=== PATIENT | female | born 1945 | race Caucasian/White ===

== ENCOUNTER 2016-07-14 16:38 | Emergency (ER) | payer BC ==
[~2016-07-14] VITALS: Ht 165.1 cm; Wt 60.0 kg
[~2016-07-14 16:38] MED LIST: ALBUAER19 INH; FELO10TA2 PO; LEVO75TA PO; LOSA1TAB38 PO; TIOTCAP INH
[2016-07-14 17:10] VITALS: TEMP 37.1; Ht 165.1 cm; Wt 60.0 kg
[2016-07-14] MEDS ORDERED: METHYLPREDNISOLONE 125 MG VIAL IV STA (17:46)
--- NOTE | 2016-07-14 17:48 | EMERGENCY ROOM VISIT NOTE ---
History Report prepared by Mindy: Tyrone Lai Under the Supervision of: Dr. Jean Pierre Asher M.D. First contact with patient: 17:41 Chief Complaint: SWELLING TO EXTREMITY Stated Complaint: SWOLLEN FEET History of Present Illness The patient is a 71 year old female who presents to the Emergency Room with complaints of persistent leg swelling that started yesterday. She has also been short of breath and coughing. The patient has smoked since she was 14 years old , and she smokes one pack per day. She says she has no history of COPD. The patient does not drink alcohol. She denies any weakness, fatigue, loss of consciousness, or chest pain. The patient does not use oxygen at home. Source of History: patient Onset: Yesterday Position: leg Quality: other (swelling) Timing: other (persistent) Associated Symptoms: + SOB, + cough, No LOC, No chest pain, No fatigue, No weakness Note: No other associated symptoms noted. Review of Systems See HPI for pertinent positives & negatives. A total of 10 systems reviewed and were otherwise negative. Past Medical & Surgical Medical Problems: (1) Hypertension Surgical Problems: (1) S/P cholecystectomy Family History Diabetes mellitus Hypertension Social History Smoking Status: Current Every Day Smoker Alcohol Use: none Marital Status: Housing Status: lives with family Occupation Status: employed Current/Historical Medications Scheduled Felodipine (Plendil), 10 MG PO DAILY Levothyroxine Sodium (Synthroid), 75 MCG PO DAILY Losartan Potassium (Cozaar), 100 MG PO DAILY Tiotropium [place] (Spiriva Handihaler), 1 CAP INH DAILY Scheduled PRN Albuterol Inhaler (Ventolin Inhaler), 2 PUFFS INH QID PRN for SOB/Wheezing Allergies Coded Allergies: No Known Allergies (Unverified , 07/14/16) Physical Exam Vital Signs Date Time Temp Pulse Resp B/P Pulse Ox O2 Delivery O2 Flow Rate FiO2 07/14/16 19:11 81 24 190/98 100 Nebulizer 9.0 07/14/16 18:15 79 14 94 Nasal Cannula 3.0 07/14/16 17:50 97 Nasal Cannula 4.0 07/14/16 17:48 79 Room Air 07/14/16 17:47 84 07/14/16 17:40 100 Nasal Cannula 4.0 07/14/16 17:10 37.1 82 18 168/84 82 Room Air Physical Exam GENERAL: Patient is chronically unwell appearing and in minimal distress. HEENT: No acute trauma, normocephalic atraumatic, mucous membranes moist, no nasal congestion, no scleral icterus. NECK: No stridor, no adenopathy, no meningismus, trachea is midline. LUNGS: Diffuse tight lung sounds with wheezing. HEART: Regular rate and rhythm. No murmurs, rubs, gallops appreciated. ABDOMEN: Soft, nontender, bowel sounds positive, no masses appreciated, no peritonitis. BACK: No midline tenderness, no CVA tenderness EXTREMITIES: Normal motion all extremities, no cyanosis. 1+ edema bilateral lower legs and ankles. NEUROLOGIC: Alert and oriented, no acute motor or sensory deficits, no focal weakness, cranial nerves grossly intact. SKIN: No rash, no jaundice, no diaphoresis. Medical Decision & Procedures ER Provider Diagnostic Interpretation: X ray results are stated below per my interpretation and the radiologist's interpretation. CHEST ONE VIEW PORTABLE CLINICAL HISTORY: [facility] dyspnea COMPARISON STUDY: 06/01/2015 FINDINGS: Interval increase in cardiac size. Prominent pulmonary vasculature. Slight blunting right lateral costophrenic angle. Baseline emphysematous change. IMPRESSION: Congestive heart failure Electronically signed by: Oli Araiza M.D. 07/14/2016 6:09 PM Dictated Date/Time: 07/14/2016 6:09 PM Laboratory Results 07/14/16 18:00 Red Blood Count 5.36, Mean Corpuscular Volume 86.8, Mean Corpuscular Hemoglobin 27.1, Mean Corpuscular Hemoglobin Concent 31.2, Mean Platelet Volume 10.1, Neutrophils (%) (Auto) 72.3, Lymphocytes (%) (Auto) 16.9, Monocytes (%) (Auto) 7.9, Eosinophils (%) (Auto) 2.7, Basophils (%) (Auto) 0.1, Neutrophils # (Auto) 5.09, Lymphocytes # (Auto) 1.19, Monocytes # (Auto) 0.56, Eosinophils # (Auto) 0.19, Basophils # (Auto) 0.01 07/14/16 18:00 Test 07/14/16 18:00 White Blood Count 7.05 K/uL (4.8-10.8) Red Blood Count 5.36 M/uL (4.2-5.4) Hemoglobin 14.5 g/dL (12.0-16.0) Hematocrit 46.5 % (37-47) Mean Corpuscular Volume 86.8 fL (80-100) Mean Corpuscular Hemoglobin 27.1 pg (25-34) Mean Corpuscular Hemoglobin Concent 31.2 g/dl (32-36) Platelet Count 176 K/uL (130-400) Mean Platelet Volume 10.1 fL (7.4-10.4) Neutrophils (%) (Auto) 72.3 % Lymphocytes (%) (Auto) 16.9 % Monocytes (%) (Auto) 7.9 % Eosinophils (%) (Auto) 2.7 % Basophils (%) (Auto) 0.1 % Neutrophils # (Auto) 5.09 K/uL (1.4-6.5) Lymphocytes # (Auto) 1.19 K/uL (1.2-3.4) Monocytes # (Auto) 0.56 K/uL (0.11-0.59) Eosinophils # (Auto) 0.19 K/uL (0-0.5) Basophils # (Auto) 0.01 K/uL (0-0.2) RDW Standard Deviation 50.4 fL (36.4-46.3) RDW Coefficient of Variation 15.7 % (11.5-14.5) Immature Granulocyte % (Auto) 0.1 % Immature Granulocyte # (Auto) 0.01 K/uL (0.00-0.02) Anion Gap 5.0 mmol/L (3-11) Est Creatinine Clear Calc Drug Dose 57.8 ml/min Estimated GFR () 87.4 Estimated GFR (Non- 75.4 BUN/Creatinine Ratio 12.3 (10-20) Calcium Level 8.3 mg/dl (8.5-10.1) Total Creatine Kinase 120 U/L (26-192) Creatine Kinase MB 2.8 ng/ml (0.5-3.6) Creatine Kinase MB Ratio 2.3 (0-3.0) Troponin I 0.039 ng/ml (0-0.045) Pro-B-Type Natriuretic Peptide 60458 pg/ml (0-900) Chemistry Specimen Hemolysis Laboratory results as reviewed by me. Medications Administered Medications (Trade) Dose Ordered Sig/James Route Start Time Stop Time Status Last Admin Dose Admin Albuterol/ Ipratropium (Duoneb) 12 ml ONE ONCE INH 07/14/16 18:00 07/14/16 18:01 DC 07/14/16 18:14 12 ML Methylprednisolone Sodium Succinate (Solu-Medrol IV) 125 mg NOW STAT IV 07/14/16 17:46 07/14/16 17:47 DC 07/14/16 18:11 125 MG ECG Indication: SOB/dyspnea Rate (beats per minute): 75 Rhythm: normal sinus Findings: T-wave inversion (Anterior), no ectopy, other (RBBB, no STEMI) Comparison ECG Date: when compared to previous, t-wave inversions are new ED Course 1742: The patient was evaluated in room B12A. A complete history and physical exam was performed. 1745: Ordered Solu-Medrol IV 125 mg IV. 1799: Ordered Duoneb 12 ml INH. 1929: I reevaluated the patient and told her that I think she is in heart failure with a possible heart attack. Her oxygen is very low as well. She refuses to stay in the hospital, and says she needs to go home to feed her cat. I said to her that she may at any time, and she says that if it's her time to , then it's her time to . I explained to her that she needs to be admitted, but she refuses. Throughout the conversation, her oxygen was at 96 on nasal cannula and she remained clear-minded. The patient will leave against medical advice. Medical Decision Differential: Infectious, Reactive Airway Disease, Pneumonia, Pneumothorax, COPD , CHF, ACS, Pulmonary Embolism, MSK, GI, Dissection, amongst other etiologies entertained. 71 yr old female arrives for evaluation of feeling weak and leg swelling. She is in CHF by exam with overlying COPD exacerbation. Given neb and solumedrol. CXR clearly with bilateral congestive failure and BNP significantly elevated. EKG with acute changes though no stemi and patient without chest pain. She has non-negative but wnl trop at this time. She was severely hypoxic on arrival though on NC O2 she is breathing comfortably with good O2 sats. She is awake, alert, oriented, does not appear intoxicated/under influence and seems capable of making her decisions. She states she wishes to go home. She is actively removing her leads. I made very clear to her my concern she may or have severe outcome if she does not get admitted to hospital. I explained at length her findings and the severity of them. She makes clear she will not stay nor does she wish further treatment. She is aware that she should call 911 if she decides she wishes further evaluation. I asked her to sign AMA paperwork and while awaiting to get this patient left department. Impression Primary Impression: Congestive heart failure Additional Impressions: Hypoxia Left against medical advice Scribe Attestation The scribe's documentation has been prepared under my direction and personally reviewed by me in its entirety. I confirm that the note above accurately reflects all work, treatment, procedures, and medical decision making performed by me. Departure Information Dispostion Against Medical Advice Patient Instructions My [facility] Additional Instructions You have refused to stay in the hospital and are leaving against medical advise. You may if you go home. You should consider returning to emergency department. We are always here to help. You have a large amount of fluid on your lungs and your heart is nor working correctly. This requires inpatient treatment and evaluation. Problem Qualifiers Primary Impression: Congestive heart failure Congestive heart failure type: systolic Congestive heart failure chronicity: acute Qualified Codes: I50.21 - Acute systolic (congestive) heart failure
[2016-07-14 17:50] VITALS: O2SAT 97
[2016-07-14] MEDS ORDERED: ALBUT/IPRATROP 3MG/0.5MG NEB 3 ML VIAL INH ONE (18:00)
--- NOTE | 2016-07-14 18:10 | DIAGNOSTIC IMAGING REPORT ---
CHEST ONE VIEW PORTABLE CLINICAL HISTORY: [facility] dyspnea COMPARISON STUDY: 06/01/2015 FINDINGS: Interval increase in cardiac size. Prominent pulmonary vasculature. Slight blunting right lateral costophrenic angle. Baseline emphysematous change. IMPRESSION: Congestive heart failure Electronically signed by: Oli Araiza M.D. 07/14/2016 6:09 PM Dictated Date/Time: 07/14/2016 6:09 PM
[2016-07-14 18:15] VITALS: PULSE 79; O2SAT 94
[2016-07-14 18:40] LABS: BASO % 0.1 %; BASO ABS # 0.01 K/uL (0-0.2); COMPLETE YES; EOS % 2.7 %; HEMATOCRIT 46.5 % (37-47); IG% 0.1 %; LYMPH % 16.9 %; LYMPH ABS # 1.19 K/uL (1.2-3.4); MEAN CELL VOLUME 86.8 fL (80-100); MEAN CORPUSCULAR HEMOGLOBIN 27.1 pg (25-34); MEAN CORPUSCULAR HGB CONC 31.2 g/dl (32-36); MEAN PLATELET VOLUME 10.1 fL (7.4-10.4); MONO % 7.9 %; NEUT % 72.3 %; PLATELET COUNT 176 K/uL (130-400); RED BLOOD COUNT 5.36 M/uL (4.2-5.4); WHITE BLOOD COUNT 7.05 K/uL (4.8-10.8)
[2016-07-14 19:11] VITALS: BP 190/98; PULSE 81; O2SAT 100
[2016-07-14 19:15] LABS: BUN/CREATININE RATIO 12.3 (10-20); CALCIUM 8.3 mg/dl (8.5-10.1); CKMB/CK RATIO 2.3 (0-3.0); CREATININE 0.78 mg/dl (0.60-1.20)
== END 2016-07-14 19:35 | disposition left against medical advice (07) ==
LOC: C.EDB 16:39
DX: I50.9 Heart failure, unspecified (principal); R09.02 Hypoxemia; Z91.19 Patient's noncompliance with other medical treatment and regimen; I10 Essential (primary) hypertension; F17.200 Nicotine dependence, unspecified, uncomplicated; Z90.49 Acquired absence of other specified parts of digestive tract; Z79.899 Other long term (current) drug therapy; Z83.3 Family history of diabetes mellitus; Z82.49 Family history of ischemic heart disease and other diseases of the circulatory system

== ENCOUNTER 2016-07-18 16:33 | Inpatient (IN) | payer BC, OTHER ==
[~2016-07-18] VITALS: Ht 165.1 cm; Wt 61.5 kg
[2016-07-18] MEDS ORDERED: ASPI81TA28 PO (16:53)
[2016-07-18] MEDS ORDERED: ZILE600T PO (16:54)
[2016-07-18] MEDS ORDERED: BUMETANIDE SOLN 1 MG/4 ML VIAL IV STA (17:06)
[2016-07-18] MEDS ORDERED: ALBUT/IPRATROP 3MG/0.5MG NEB 3 ML VIAL INH STA (17:08)
--- NOTE | 2016-07-18 17:11 | EMERGENCY ROOM VISIT NOTE ---
History Report prepared by Mindy: Quentin Gonzalez Under the Supervision of: Dr. Luiz Mc M.D. First contact with patient: 16:57 Chief Complaint: SHORTNESS OF BREATH Stated Complaint: SOB History of Present Illness The patient is a 71 year old female who presents to the Emergency Room with complaints of persistent shortness of breath occurring earlier today. Per the nurse, she was at a doctor's appointment earlier today at a [facility] office , and was sent over as her oxygen saturation was around 83% on room air. She has gained about 15 to 20 over the last few months. Per the patient, she has not noticed any recent swelling in her legs, and denies having any fever or cough. The patient does not recall and recent falls or trauma. She notes she lives with her family. She does not recall taking any regular medications today as she indicates that she does not have any. She used to take thyroid medication daily. She notes she has inhalers, but ran out about 6 days ago. The patient was here 4 days ago for heart failure and signed out against medical advice. Source of History: patient, nursing staff Onset: earlier today Position: other (lungs) Symptom Intensity: O2 sat in 80s on room air Quality: other (shortness of breath) Timing: other (persistent) Associated Symptoms: No cough, No fevers Note: The patient does not recall having any swelling in her legs. Review of Systems See HPI for pertinent positives & negatives. A total of 10 systems reviewed and were otherwise negative. Past Medical & Surgical Medical Problems: (1) Hypertension Surgical Problems: (1) S/P cholecystectomy Family History Diabetes mellitus Hypertension Social History Smoking Status: Current Every Day Smoker Alcohol Use: none Marital Status: Housing Status: lives with family Occupation Status: employed Current/Historical Medications Scheduled Aspirin (Aspirin Ec), 81 MG PO DAILY Felodipine (Plendil), 10 MG PO DAILY Levothyroxine Sodium (Synthroid), 75 MCG PO DAILY Losartan Potassium (Cozaar), 100 MG PO DAILY Tiotropium [place] (Spiriva Handihaler), 1 CAP INH DAILY Zileuton (Zyflo Cr), 600 MG PO BID Scheduled PRN Albuterol Inhaler (Ventolin Inhaler), 2 PUFFS INH QID PRN for SOB/Wheezing Allergies Coded Allergies: Amoxicillin (Unverified Allergy, Unknown, itching, 07/18/16) Poison [place] Extract/Poison [place] Extra (Unverified Allergy, Unknown, rash, ) Physical Exam Vital Signs Date Time Temp Pulse Resp B/P Pulse Ox O2 Delivery O2 Flow Rate FiO2 07/18/16 18:21 195/108 07/18/16 18:03 79 9 91 07/18/16 17:33 84 25 95 07/18/16 17:30 97 Nasal Cannula 2.0 07/18/16 17:30 97 Nasal Cannula 2.0 07/18/16 17:03 80 12 96 07/18/16 16:58 81 07/18/16 16:57 97 Nasal Cannula 2.0 07/18/16 16:48 36.7 83 16 195/108 83 Room Air 07/18/16 16:38 195/108 Physical Exam GENERAL: Patient is in no acute distress. HEENT: No acute trauma, normocephalic atraumatic, mucous membranes moist, no nasal congestion, no scleral icterus. NECK: No stridor, no adenopathy, no meningismus, trachea is midline. LUNGS: Diminished breath sounds with bilateral wheezing; breath sounds are equal with no crackles. HEART: Without murmurs gallops or rubs, regular rate and rhythm. ABDOMEN: Soft, nontender, bowel sounds positive, no hernias, no peritonitis. EXTREMITIES: Moderate bilateral pedal edema. No cellulitis NEUROLOGIC: Oriented x 3, no acute motor or sensory deficits, no focal weakness. SKIN: No rash, no jaundice, no diaphoresis. Medical Decision & Procedures ER Provider Diagnostic Interpretation: X ray results and stated below per my interpretation and radiologist interpretation. Other radiology results and stated below per my review and radiologist interpretation: CHEST ONE VIEW PORTABLE FINDINGS: The heart is mildly enlarged. There is mild congestive failure. There is a small right pleural effusion with associated right basilar airspace opacities. IMPRESSION: Cardiomegaly, mild congestive failure, and small right pleural effusion. There are associated right basilar airspace opacities. Electronically signed by: Leonidas Pavon M.D. 07/18/2016 5:43 PM Dictated Date/Time: 07/18/2016 5:42 PM Laboratory Results 07/18/16 17:40 Red Blood Count 5.22, Mean Corpuscular Volume 84.7, Mean Corpuscular Hemoglobin 27.0, Mean Corpuscular Hemoglobin Concent 31.9, Mean Platelet Volume 9.6, Neutrophils (%) (Auto) 73.8, Lymphocytes (%) (Auto) 15.6, Monocytes (%) (Auto) 8.3, Eosinophils (%) (Auto) 2.1, Basophils (%) (Auto) 0.1, Neutrophils # (Auto) 5.35, Lymphocytes # (Auto) 1.13, Monocytes # (Auto) 0.60, Eosinophils # (Auto) 0.15, Basophils # (Auto) 0.01 07/18/16 17:40 Test 07/18/16 17:04 07/18/16 17:40 Magnesium Level 2.1 mg/dl (1.8-2.4) Troponin I 0.041 ng/ml (0-0.045) Pro-B-Type Natriuretic Peptide 07625 pg/ml (0-900) Thyroid Stimulating Hormone (TSH) 20.000 uIu/ml (0.300-4.500) Free Thyroxine 0.84 ng/dl (0.80-1.60) White Blood Count 7.25 K/uL (4.8-10.8) Red Blood Count 5.22 M/uL (4.2-5.4) Hemoglobin 14.1 g/dL (12.0-16.0) Hematocrit 44.2 % (37-47) Mean Corpuscular Volume 84.7 fL (80-100) Mean Corpuscular Hemoglobin 27.0 pg (25-34) Mean Corpuscular Hemoglobin Concent 31.9 g/dl (32-36) Platelet Count 180 K/uL (130-400) Mean Platelet Volume 9.6 fL (7.4-10.4) Neutrophils (%) (Auto) 73.8 % Lymphocytes (%) (Auto) 15.6 % Monocytes (%) (Auto) 8.3 % Eosinophils (%) (Auto) 2.1 % Basophils (%) (Auto) 0.1 % Neutrophils # (Auto) 5.35 K/uL (1.4-6.5) Lymphocytes # (Auto) 1.13 K/uL (1.2-3.4) Monocytes # (Auto) 0.60 K/uL (0.11-0.59) Eosinophils # (Auto) 0.15 K/uL (0-0.5) Basophils # (Auto) 0.01 K/uL (0-0.2) RDW Standard Deviation 48.2 fL (36.4-46.3) RDW Coefficient of Variation 15.5 % (11.5-14.5) Immature Granulocyte % (Auto) 0.1 % Immature Granulocyte # (Auto) 0.01 K/uL (0.00-0.02) Prothrombin Time 11.8 SECONDS (9.0-12.0) Prothromb Time International Ratio 1.1 (0.9-1.1) Activated Partial Thromboplast Time 29.9 SECONDS (21.0-31.0) Partial Thromboplastin Ratio 1.2 Arterial Blood pH 7.35 (7.35-7.45) Arterial Blood Partial Pressure CO2 66 mmHg (35-46) Arterial Blood Partial Pressure O2 82 mm/Hg (80-95) Arterial Blood HCO3 35 mmol/L (19-24) Arterial Blood Oxygen Saturation 95.2 % (90-95) Arterial Blood Base Excess 7.3 mEq/L (-9-1.8) Arterial Blood Gas Delivery 2L Len Test POS (POS) Anion Gap 5.0 mmol/L (3-11) Est Creatinine Clear Calc Drug Dose 63.5 ml/min Estimated GFR () 97.9 Estimated GFR (Non- 84.5 BUN/Creatinine Ratio 13.8 (10-20) Calcium Level 7.9 mg/dl (8.5-10.1) Total Bilirubin 0.4 mg/dl (0.2-1) Aspartate Amino Transf (AST/SGOT) 23 U/L (15-37) Alanine Aminotransferase (ALT/SGPT) 20 U/L (12-78) Alkaline Phosphatase 61 U/L (45-117) Total Protein 5.8 gm/dl (6.4-8.2) Albumin 2.8 gm/dl (3.4-5.0) Globulin 3.0 gm/dl (2.5-4.0) Albumin/Globulin Ratio 0.9 (0.9-2) Chemistry Specimen Hemolysis Laboratory results reviewed by me. Medications Administered Medications (Trade) Dose Ordered Sig/James Route Start Time Stop Time Status Last Admin Dose Admin Bumetanide (Bumex IV) 1 mg NOW STAT IV 07/18/16 17:06 07/18/16 17:09 DC 07/18/16 18:00 1 MG Albuterol/ Ipratropium (Duoneb) 3 ml NOW STAT INH 07/18/16 17:08 07/18/16 17:10 DC 07/18/16 18:00 3 ML ECG Indication: SOB/dyspnea Rate (beats per minute): 81 Rhythm: normal sinus Findings: nonspecific-ST abn, no acute ischemic change, other (old septal infarct) ED Course 170: The patient was evaluated in room B11A. A complete history and physical exam was performed. 170: Ordered Bumetanide 1 mg IV. 170: Ordered Duoneb 3 ml INH. 1814: Discussed the patient's case with Dr. Brody. The patient will be evaluated for further management. Medical Decision Differentials include exacerbation of COPD, bronchitis or pneumonia, CHF, NC, electrolyte imbalance, renal failure, anemia, and UTI. There is no leukocytosis or concerning anemia. No significant electrolyte abnormality, kidney failure or hepatitis. The patient's thyroid testing indicates that she uses thyroid medications as an outpatient. There is no coagulopathy. Chest x-ray shows heart failure, no pneumonia. BNP is elevated consistent with fluid overload. EKG shows a normal sinus rhythm with some older changes, no acute ischemia. Cardiac enzyme testing 1 is not suggestive of acute cardiac injury. ABG demonstrates some mild CO2 retention, no acidosis. The patient was given a DuoNeb, she received IV Bumex. I talked to her about her situation. She is hypoxic and fluid overload, admission/observation is warranted. She did consent to stay in the hospital. I spoke with the case management team. The on-call hospitalist was consulted. Consults Time Called: 1809 Consulting Physician: Dr. Brody - [facility] Returned Call: [phone] Discussed the patient's case with Dr. Brody. The patient will be evaluated for further management. Impression Primary Impression: Hypoxia Additional Impressions: Congestive heart failure Pedal edema Scribe Attestation The scribe's documentation has been prepared under my direction and personally reviewed by me in its entirety. I confirm that the note above accurately reflects all work, treatment, procedures, and medical decision making performed by me. Departure Information Dispostion Being Evaluated By Hospitalist Referrals Di Ortiz (PCP) Patient Instructions My [facility] Problem Qualifiers
[2016-07-18 17:56] LABS: MAGNESIUM 2.1 mg/dl (1.8-2.4)
[2016-07-18 17:59] LABS: ALLEN TEST POS (POS); ARTERIAL BLD GAS O2 SATURATION 95.2 % (90-95); ARTERIAL BLOOD GAS BASE EXCESS 7.3 mEq/L (-9-1.8); ARTERIAL BLOOD GAS HCO3 35 mmol/L (19-24); ARTERIAL BLOOD GAS PO2 82 mm/Hg (80-95); ARTERIAL BLOOD GAS pH 7.35 (7.35-7.45); O2 ADMINISTRATION 2L
[2016-07-18 18:02] LABS: BASO % 0.1 %; BASO ABS # 0.01 K/uL (0-0.2); COMPLETE YES; EOS % 2.1 %; HEMATOCRIT 44.2 % (37-47); IG% 0.1 %; LYMPH % 15.6 %; LYMPH ABS # 1.13 K/uL (1.2-3.4); MEAN CELL VOLUME 84.7 fL (80-100); MEAN CORPUSCULAR HGB CONC 31.9 g/dl (32-36); MEAN PLATELET VOLUME 9.6 fL (7.4-10.4); MONO % 8.3 %; NEUT % 73.8 %; PLATELET COUNT 180 K/uL (130-400); RED BLOOD COUNT 5.22 M/uL (4.2-5.4); WHITE BLOOD COUNT 7.25 K/uL (4.8-10.8)
--- NOTE | 2016-07-18 18:08 | DIAGNOSTIC IMAGING REPORT ---
CHEST ONE VIEW PORTABLE CLINICAL HISTORY: Respiratory distress COMPARISON STUDY: 07/14/2016 FINDINGS: The heart is mildly enlarged. There is mild congestive failure. There is a small right pleural effusion with associated right basilar airspace opacities.[ IMPRESSION: Cardiomegaly, mild congestive failure, and small right pleural effusion. There are associated right basilar airspace opacities. Electronically signed by: Leonidas Pavon M.D. 07/18/2016 5:43 PM Dictated Date/Time: 07/18/2016 5:42 PM
[2016-07-18 18:14] LABS: INR 1.1 (0.9-1.1); PARTIAL THROMBOPLASTIN RATIO 1.2; PROTHROMBIN TIME (PATIENT) 11.8 SECONDS (9.0-12.0)
[2016-07-18] MEDS ORDERED: ALUMINUM/MAGNESIUM/SIMETH (MAALOX MAX) 30 ML UDC PO PRN (18:30)
[2016-07-18] MEDS ORDERED: MAGNESIUM HYDROXIDE SUSP 30 ML UDC PO PRN (18:30)
[2016-07-18] MEDS ORDERED: ALBUTEROL HFA 8 GM INHALER INH PRN (18:30)
[2016-07-18] MEDS ORDERED: ACETAMINOPHEN 325 MG TAB PO PRN (18:30)
[2016-07-18] MEDS ORDERED: ONDANSETRON INJ 2 MG/ML 2 ML VIAL IV PRN (18:30)
[2016-07-18] MEDS ORDERED: POLYETHYLENE (MIRALAX) 17 GM PACK PO PRN (18:45)
[2016-07-18 19:13] LABS: ALB/GLOB RATIO 0.9 (0.9-2); BUN/CREATININE RATIO 13.8 (10-20); CALCIUM 7.9 mg/dl (8.5-10.1); CREATININE 0.71 mg/dl (0.60-1.20); POTASSIUM 4.7 mmol/L (3.5-5.1)
[2016-07-18 20:00] VITALS: BP 182/85; TEMP 36.6; O2SAT 93; Ht 165.1 cm; Wt 61.5 kg
[2016-07-18 20:05] VITALS: O2SAT 96
[2016-07-18 20:38] VITALS: BP 182/85; PULSE 74; TEMP 36.6; O2SAT 93
[2016-07-18] MEDS ORDERED: FUROSEMIDE INJ 40 MG in SYRINGE 0 ML IV ONE (21:00)
[2016-07-18] MEDS ORDERED: ENOXAPARIN 40 MG/0.4 ML SYR SQ SCH (21:00)
--- NOTE | 2016-07-18 22:32 | History and Physical ---
History & Physical Date of Service Jul 18, 2016. History & Physical admit #[id number]
--- NOTE | 2016-07-18 23:26 | HISTORY & PHYSICAL EXAMINATION ---
DATE OF ADMISSION: 07/18/2016 CHIEF COMPLAINT: Shortness of breath. HISTORY OF PRESENT ILLNESS: The patient is a 71-year-old female, sent over from the office because of shortness of breath. She was 83% on room air, relates to the ER physician gaining about 15-20 pounds over the last few months, then relates to me about 30 pounds including swelling in her legs. Oddly enough, she mostly was sent here because of her hypoxia noted at the doctor's office more than shortness of breath in spite of being 83%. She had been here in the ER on the with a chief complaint of leg swelling. Also, at that time noted to be a bit short of breath and coughing. At that point, she had a chest x-ray consistent with congestive heart failure and was actually 79% on room air. The ER physician made it very clear to her risk of even given her hypoxia, but she signed out AMA. Today, she presents back after having seen her PCP and having ongoing hypoxia. She is a little bit suspect about how much she may or may not be taking her medications. She admits to shortness of breath on directed questioning, but really mostly complains of leg swelling and weight gain as a spontaneous complaint. She is having frequent urination now that she has had Lasix in the ER. REVIEW OF SYSTEMS: Otherwise negative, except for as above. PAST MEDICAL HISTORY: Includes hypertension and possible COPD as well as hypothyroidism. MEDICATIONS: Listed as; aspirin 81 mg daily, Plendil 10 mg daily, Synthroid 75 mcg daily, losartan 100 mg daily, Spiriva 18 mcg one puff daily and Zyflo 600 mg b.i.d. as well as an albuterol inhaler two puffs q.i.d. p.r.n. shortness of breath or wheeze. ALLERGIES: AMOXICILLIN AND POISON SOFIA. No noted surgical history. FAMILY HISTORY: Includes diabetes and hypertension. SOCIAL HISTORY: She has smoked since she was 14, reportedly about a pack a day. PHYSICAL EXAMINATION: VITAL SIGNS: Her initial vitals show a temperature of 36.7, pulse 83, respiratory rate 16, blood pressure 195/108 and 83% on room air. Fortunately, she corrects to the mid 90s on two liters. GENERAL: She is awake, alert, oriented x3, pleasant, but a little bit restless and somewhat disinterested in giving a history or my attempts to explain to her working our working diagnoses and plans. HEENT: Normocephalic and atraumatic. Mucous membranes are moist. CARDIOVASCULAR: Regular, somewhat distant. No clearly notable rubs, murmurs or gallops. LUNGS: Bibasilar rales with a degree of diminished air entry throughout. No accessory muscle use. ABDOMEN: Soft, nondistended, nontender. No masses or organomegaly. EXTREMITIES: Without cyanosis or clubbing. She has about 2-3+ pitting edema bilaterally [place] down with a few areas of open, weeping fluid. No erythema, no calf tenderness. SKIN: Shows no rashes. No pallor or icterus. NEUROLOGIC: Shows cranial nerves II-XII to be grossly intact. Gross motor and sensory are intact. MENTAL STATE: Shows good recent and remote recall. Again, she seems somewhat disinterested in discussions and walked off to go to the bathroom while I was trying to explain to her congestive heart failure, although I was able to revisit to try to explain the plan to her further. LABORATORIES AND DIAGNOSTICS: CBC shows a white count of 7.25, hemoglobin 14.1 and platelets 180. Complete metabolic panel with; sodium 129, potassium 4.7, chloride 92, CO2 32, BUN 10, creatinine 0.71, calcium 7.9, glucose 93, mag 2.1, total bili 0.4 with an AST of 23, ALT 20, alkaline phosphatase 61. Troponin of 0.041. BNP of 18,180. Total protein 5.8, albumin 2.8. TSH 20.0 with a free T4 of 0.84. PT of 11.8. PTT of 29.9. EKG; sinus with flipped T waves really throughout the entire V2-V6, somewhat flattened T waves inferiorly flipped in aVF, but does appear overall quite similar to her tracings from the . Chest x-ray shows cardiomegaly, mild congestive heart failure, small right pleural effusion and right basilar airspace opacities. ASSESSMENT AND PLAN: 1. Acute hypoxic respiratory failure. This has to be acute on chronic given her almost lack of symptoms despite markedly low pulse ox's. I suspect the acute congestive heart failure is superimposed on chronic from chronic obstructive pulmonary disease and/or congestive heart failure. However, at any rate, her hypoxia is certainly at dangerously low levels on room air and needs to be treated. See below. 2. Acute decompensation of congestive heart failure with pulmonary edema, certainly at the very least this appears to be the major part of the acute overlay of her shortness of breath given her 20-30 pound weight gain, pulmonary edema rales and other findings. We will need to check an echocardiogram to evaluate for her underlying cardiomyopathy and in the meantime diurese her with Lasix 40 mg additional this evening, then 20 mg daily, increase as needed and then certainly manage the underlying cardiomyopathy as appropriate once it is unearthed. 3. Chronic obstructive pulmonary disease, continue her Spiriva and p.r.n. albuterol, follow clinically. Certainly, knowing what her pulmonary function test values are would be helpful and management of this as well. 4. Right airspace density, this does not appear clinically consistent with pneumonia. This may be asymmetric pulmonary edema, although certainly with her smoking history a followup chest x-ray after the pulmonary edema has cleared plus or minus a CT if needed to rule out any concerning mass lesion would be warranted. 5. Hyponatremia. This is almost certainly due to volume overload. I anticipate it improving as her clinical status improves. 6. Hypocalcemia. Check a vitamin D. 7. Elevated thyroid-stimulating hormone. I questioned her adherence to Synthroid. Certainly, for now, we will just continue at her home dose and then follow up. 8. Hypertension. Continue her home medications. 9. Deep venous thrombosis prophylaxis with Lovenox.
[2016-07-19] MEDS ORDERED: LEVOTHYROXINE 75 MCG TAB PO SCH (06:30)
[2016-07-19] MEDS ORDERED: FELODIPINE 5 MG TABCR PO SCH (09:00)
[2016-07-19] MEDS ORDERED: TIOTROPIUM BROMIDE 5 PUFF/90 MCG INH INH SCH (09:00)
[2016-07-19] MEDS ORDERED: FUROSEMIDE INJ 20 MG in SYRINGE 0 ML IV SCH (09:00)
[2016-07-19] MEDS ORDERED: POTASSIUM CHLORIDE 20 MEQ TABCR PO SCH (09:00)
[2016-07-19] MEDS ORDERED: LOSARTAN POTASSIUM 50 MG TAB PO SCH (09:00)
[2016-07-19] MEDS ORDERED: ASPIRIN 81 MG ECTAB PO SCH (09:00)
--- NOTE | 2016-07-19 13:26 | Discharge Summary ---
Discharge Summary Date of Service Jul 19, 2016. Discharge Summary Admission Date: Jul 18, 2016 at 18:29 Discharge Disposition: Home Principal Diagnosis: hypoxia - CHF (undetermined type) and COPD - left against advice Procedures: echo had been ordered, she did not stay for it to be completed CXR c/w CHF Hospital Course see H&P - admitted hypoxia - appearing likely acute (CHF) on chronic (COPD ? chronic CHF) -tried to explain situation to patient at admission, she was fairly disinterested, i revisited to discuss further for concern that if she didn't understand her situation, she might leave AMA again. unfortunately she did. Total Time Spent: Less than 30 minutes This includes examination of the patient, discharge planning, medication reconciliation, and communication with other providers. Discharge Instructions Please refer to the electronic Patient Visit Report (Discharge Instructions) for additional information. Additional Copies To Di Ortiz.
== END 2016-07-18 21:30 | disposition left against medical advice (07) | DRG 292 ==
LOC: ENRESERVDT → ENRESERVTM → EDBD 16:33 → C.EDB 16:35 → C.MS2W 18:29
PROVIDERS: ADMIT Family Medicine; ATTEND Family Medicine
DX: I50.9 Heart failure, unspecified (principal); E87.1 Hypo-osmolality and hyponatremia; E03.9 Hypothyroidism, unspecified; I10 Essential (primary) hypertension; Z79.82 Long term (current) use of aspirin; Z79.899 Other long term (current) drug therapy; Z88.0 Allergy status to penicillin; Z91.048 Other nonmedicinal substance allergy status; F17.210 Nicotine dependence, cigarettes, uncomplicated; Z83.3 Family history of diabetes mellitus; Z82.49 Family history of ischemic heart disease and other diseases of the circulatory system; I42.9 Cardiomyopathy, unspecified; J44.9 Chronic obstructive pulmonary disease, unspecified; E83.51 Hypocalcemia; R09.02 Hypoxemia